=== PATIENT | female | born 1950 | race Caucasian/White ===

== ENCOUNTER → 2016-07-12 | Outpatient (CLI) | payer OTHER ==
[~2016-07-12] MED LIST: BABY81CH PO; CARD360C PO; CYCL-36 PO; DIGO0.25 PO; FURO1TAB93 PO; OMEP20TA PO; OXYC10 PO; POTA-267 PO; ROSU5 PO; VENTAER INH
[2016-07-12 15:48] LABS: BICARBONATE 35.2 MEQ/L (21.0-32.0); POTASSIUM 3.8 MEQ/L (3.5-5.1)
[2016-07-12 15:51] LABS: HDL CHOLESTEROL 67.9 MG/DL (40.0-60.0)
== END ==
LOC: PLAB 12:10
PROVIDERS: ATTEND Internal Medicine Interventional Cardiology
DX: R00.2 Palpitations (principal); I49.1 Atrial premature depolarization; E78.00 Pure hypercholesterolemia, unspecified; I11.9 Hypertensive heart disease without heart failure
CPT/HCPCS: 80048; 80061; 84450; 84460

== ENCOUNTER → 2016-11-11 | Outpatient (CLI) | payer OTHER ==
[2016-11-11 12:56] LABS: BACTERIA, URINE OCC /hpf; BLOOD, URINE MOD (NEG); GLUCOSE,URINE NEG (NEG); KETONE, URINE NEG (NEG); MUCUS URINE FEW /lpf (OCC); NITRITE,URINE NEG (NEG); SQUAMOUS EPITHELIAL CELL URINE 1 /hpf (0-5); URINE COLOR YELLOW (YELLW/STRAW)
[2016-11-11 13:02] LABS: AUTOMATED NEUTROPHIL # 2.7 TH/MM3 (1.8-7.7); BASOPHIL % 0.8 % (0.0-2.0); EOSINOPHIL # 0.1 TH/MM3 (0-0.4); EOSINOPHIL % 2.9 % (0.0-4.0); HEMATOCRIT 39.2 % (35.0-46.0); HEMO FLAGS DIFF FINAL; LYMPH % 32.6 % (9.0-44.0); LYMPHOCYTE # 1.5 TH/MM3 (1.0-4.8); MEAN CELL VOLUME 92.6 FL (80.0-100.0); MEAN CORPUSCULAR HEMOGLOBIN 30.1 PG (27.0-34.0); MEAN CORPUSCULAR HGB CONC 32.5 % (32.0-36.0); MONO % 6.8 % (0.0-8.0); NEUT % 56.9 % (16.0-70.0); PLATELET COUNT 212 TH/MM3 (150-450); RED BLOOD COUNT 4.23 MIL/MM3 (4.00-5.30); RED CELL DISTRIBUTION WIDTH 13.6 % (11.6-17.2); WHITE BLOOD COUNT 4.7 TH/MM3 (4.0-11.0)
[2016-11-11 13:16] LABS: ANION GAP 7 MEQ/L (5-15); BICARBONATE 32.2 MEQ/L (21.0-32.0); BLOOD UREA NITROGEN 16 MG/DL (7-18); CHLORIDE 100 MEQ/L (98-107); GLOMERULAR FILTRATION RATE 72 ML/MIN (>89); GLUCOSE,FASTING 99 MG/DL (74-99); POTASSIUM 3.7 MEQ/L (3.5-5.1); SODIUM (NA) 139 MEQ/L (136-145)
[2016-11-11 13:17] LABS: AST (GOT) 41 U/L (15-37)
[2016-11-11 13:43] LABS: WESTERGREN SEDIMENTATION RATE 12 mm/hr (0-30)
[2016-11-11 13:46] LABS: ALKALINE PHOSPHATASE 71 U/L (45-117); ALT (GPT) 57 U/L (10-53); HDL CHOLESTEROL 63.4 MG/DL (40.0-60.0); LDL CHOLESTEROL 80 MG/DL (0-99); TOTAL BILIRUBIN ADULT 0.6 MG/DL (0.2-1.0)
== END ==
LOC: PLAB 10:33
PROVIDERS: ATTEND Family Medicine
DX: I10 Essential (primary) hypertension (principal); R53.83 Other fatigue; E78.5 Hyperlipidemia, unspecified; E55.9 Vitamin D deficiency, unspecified; M60.9 Myositis, unspecified; R31.21 Asymptomatic microscopic hematuria
CPT/HCPCS: 80053; 80061; 81001; 82306; 82607; 85025; 85652; 86038; 86235

== ENCOUNTER → 2016-12-15 | Outpatient (CLI) | payer OTHER ==
[~2016-12-15] MED LIST changes: +DIGO0.12 PO; +DILT-64 PO; +ESTR42.5V VAGINAL; +FLUTI110I INH; +LISI-519 PO; +MONT10TA2 PO; +NITR100C4 PO; +PROZ20CA11 PO; +RANI150T PO; +REST30CA PO; +[UNRECOGNIZED DRUG - CODE] PO
[2016-12-15 16:46] LABS: FREE T4 1.14 NG/DL (0.76-1.46)
[2016-12-15 18:56] LABS: HEMOGLOBIN A1a 1.1 %; HEMOGLOBIN Ao 84.3 %; HEMOGLOBIN LA1C 2.1 %; HEMOGLOBIN P3 3.8 %
== END ==
LOC: PLAB 11:57
PROVIDERS: ATTEND Family Medicine
DX: E11.9 Type 2 diabetes mellitus without complications (principal); I47.1 Supraventricular tachycardia; E55.9 Vitamin D deficiency, unspecified; R79.89 Other specified abnormal findings of blood chemistry; G25.3 Myoclonus
CPT/HCPCS: 80162; 82164; 82607; 82746; 83036; 84439; 84443

== ENCOUNTER → 2017-02-04 | Outpatient (CLI) | payer OTHER ==
[~2017-02-04] MED LIST changes: -BABY81CH PO; -CARD360C PO; -CYCL-36 PO; -DIGO0.25 PO; -FURO1TAB93 PO; -OMEP20TA PO; -OXYC10 PO; -POTA-267 PO
[2017-02-04 13:37] LABS: BLOOD, URINE SMALL (NEG); COMMENT (UR) CULT NOT INDICATED; CULTURE IF INDICATED CULT NOT INDICATED; GLUCOSE,URINE NEG (NEG); KETONE, URINE NEG (NEG); MUCUS URINE FEW /lpf (OCC); NITRITE,URINE NEG (NEG); PH, URINE 7.5 (5.0-8.5); SQUAMOUS EPITHELIAL CELL URINE <1 /hpf (0-5); URINE COLOR YELLOW (YELLW/STRAW)
== END ==
LOC: CLAB 13:07
PROVIDERS: ATTEND Obstetrics & Gynecology Gynecology
DX: R31.29 Other microscopic hematuria (principal)
CPT/HCPCS: 81001

== ENCOUNTER → 2017-02-16 | Outpatient (CLI) | payer OTHER ==
[2017-02-16 16:40] LABS: BACTERIA, URINE FEW /hpf; BLOOD, URINE MOD (NEG); COMMENT (UR) CULTURE INDICATED; CULTURE IF INDICATED CULTURE INDICATED; GLUCOSE,URINE NEG (NEG); KETONE, URINE NEG (NEG); NITRITE,URINE POS (NEG); PH, URINE 5.5 (5.0-8.5); SQUAMOUS EPITHELIAL CELL URINE 1 /hpf (0-5); URINE COLOR YELLOW (YELLW/STRAW)
== END ==
LOC: PLAB 12:25
PROVIDERS: ATTEND Obstetrics & Gynecology Gynecology
DX: N39.0 Urinary tract infection, site not specified (principal); B96.1 Klebsiella pneumoniae [K. pneumoniae] as the cause of diseases classified elsewhere
CPT/HCPCS: 81001; 87077; 87086; 87186

== ENCOUNTER → 2017-03-29 | Outpatient (CLI) | payer OTHER ==
[~2017-03-29] MED LIST changes: -DILT-64 PO; +DILT240C44 PO; +[UNRECOGNIZED DRUG - CODE] PO; -[UNRECOGNIZED DRUG - CODE] PO
--- NOTE | 2017-03-31 10:56 | HM ---
Date Performed: 03/29/2017 Time Performed: 13:20:00 HOOKUP DATE: 03/29/17 01:20:00 PM Tue ANALYSIS START TIME: 03/29/2017 1:25:00 PM ANALYSIS END TIME: 03/30/2017 1:28:59 PM PATIENT AGE: 66 PATIENT HEIGHT PATIENT WEIGHT DRUG LIST PATIENT DIAGNOSIS: palpitations TEST NARRATIVE: The patient's average heart rate was 81 BPM. No episodes of tachycardia wer e noted. No episodes of bradycardia were noted. No pauses exceeding 2.0 seconds were noted. 1087 ventricular ectopics, which represented 1% of the total beat count, were noted. The highest tan tricular ectopic frequency occurred from 04:00 PM to 05:00 PM Tue. During this time 373 VE(s) occurr ed. Ventricular ectopics were observed as 1061 isolated beat(s) and as 13 couplet(s). No runs were noted. No supraventricular ectopics were noted. No episodes of ST depression (defined as -1.0 mm or more) were noted in channel 1. No episodes of ST depression (defined as -1.0 mm or more) were noted in channel 2. No episodes of ST depression (defined as -1.0 mm or more) were noted in channel 3. TEST INTERPRETATION: Benign Holter Monitor Occassional PVC's No pauses No tachyarrthymias Signed by : Navi Boykin
== END ==
LOC: HCAV 12:56
PROVIDERS: ATTEND Internal Medicine Interventional Cardiology
DX: R00.2 Palpitations (principal)
CPT/HCPCS: 93225; 93226

== ENCOUNTER → 2017-04-20 | Outpatient (CLI) | payer OTHER ==
[~2017-04-20] MED LIST changes: +METH5TAB PO
[2017-04-20 16:09] LABS: BICARBONATE 32.1 MEQ/L (21.0-32.0); POTASSIUM 4.4 MEQ/L (3.5-5.1)
[2017-04-20 16:20] LABS: HDL CHOLESTEROL 76.5 MG/DL (40.0-60.0)
== END ==
LOC: PLAB 11:24
PROVIDERS: ATTEND Internal Medicine Interventional Cardiology
DX: E11.9 Type 2 diabetes mellitus without complications (principal); R60.0 Localized edema; E72.00 Disorders of amino-acid transport, unspecified; Z79.899 Other long term (current) drug therapy
CPT/HCPCS: 36415; 80048; 80061; 83721; 84443; 84450; 84460

== ENCOUNTER → 2017-07-11 | Outpatient (CLI) | payer OTHER ==
[~2017-07-11] MED LIST changes: -NITR100C4 PO
== END ==
LOC: PLAB 10:19
PROVIDERS: ATTEND Family Medicine
DX: R31.21 Asymptomatic microscopic hematuria (principal)
CPT/HCPCS: 88112

== ENCOUNTER → 2017-07-13 | Outpatient (CLI) | payer OTHER ==
[2017-07-13 11:15] LABS: ALBUMIN 3.6 GM/DL (3.4-5.0); AST (GOT) 49 U/L (15-37); BICARBONATE 31.8 MEQ/L (21.0-32.0); BLOOD UREA NITROGEN 14 MG/DL (7-18); CALCIUM 8.4 MG/DL (8.5-10.1); CHLORIDE 100 MEQ/L (98-107); CREATININE 0.78 MG/DL (0.50-1.00); GLOMERULAR FILTRATION RATE 74 ML/MIN (>89); GLUCOSE,FASTING 106 MG/DL (74-99); SODIUM (NA) 140 MEQ/L (136-145)
[2017-07-13 11:16] LABS: CHOLESTEROL 225 MG/DL (120-200)
[2017-07-13 11:19] LABS: ALKALINE PHOSPHATASE 89 U/L (45-117); ALT (GPT) 78 U/L (10-53); CHOLESTEROL/ HDL RATIO 3.36 RATIO; HDL CHOLESTEROL 66.9 MG/DL (40.0-60.0); LDL CHOLESTEROL 138 MG/DL (0-99); TOTAL BILIRUBIN ADULT 0.4 MG/DL (0.2-1.0); TOTAL PROTEIN 7.9 GM/DL (6.4-8.2); TRIGLYCERIDES 102 MG/DL (42-150)
[2017-07-13 15:59] LABS: HEMOGLOBIN A1C 6.2 % (4.3-6.0)
== END ==
LOC: PLAB 09:21
PROVIDERS: ATTEND Family Medicine
DX: K76.0 Fatty (change of) liver, not elsewhere classified (principal); E11.9 Type 2 diabetes mellitus without complications; R94.5 Abnormal results of liver function studies
CPT/HCPCS: 36415; 80053; 80061; 83036

== ENCOUNTER → 2017-08-12 | Outpatient (CLI) | payer OTHER ==
[2017-08-12 14:33] LABS: BICARBONATE 32.2 MEQ/L (21.0-32.0); CALCIUM 8.8 MG/DL (8.5-10.1); CREATININE 0.85 MG/DL (0.50-1.00)
[2017-08-12 14:37] LABS: CHOLESTEROL/ HDL RATIO 2.46 RATIO; HDL CHOLESTEROL 70.6 MG/DL (40.0-60.0)
== END ==
LOC: PLAB 08:49
PROVIDERS: ATTEND Internal Medicine Interventional Cardiology
DX: E11.9 Type 2 diabetes mellitus without complications (principal); R60.0 Localized edema; I47.1 Supraventricular tachycardia; R00.2 Palpitations
CPT/HCPCS: 36415; 80048; 80061; 84450; 84460

== ENCOUNTER → 2017-08-15 | Outpatient (CLI) | payer OTHER | LOC: PLAB 11:49 | PROVIDERS: ATTEND Family Medicine | DX: Z11.59 Encounter for screening for other viral diseases (principal) | CPT/HCPCS: 36415; 86803 ==

== ENCOUNTER → 2017-08-30 | Outpatient (CLI) | payer OTHER ==
[2017-08-30 09:13] LABS: PROTHROMBIN TIME - PATIENT 10.3 SEC (9.8-11.6)
[2017-08-30 10:22] LABS: AUTOMATED NEUTROPHIL # 3.9 TH/MM3 (1.8-7.7); BASOPHIL % 0.5 % (0.0-2.0); EOSINOPHIL # 0.1 TH/MM3 (0-0.4); EOSINOPHIL % 1.2 % (0.0-4.0); HEMATOCRIT 39.5 % (35.0-46.0); HEMOGLOBIN 13.5 GM/DL (11.6-15.3); LYMPH % 27.9 % (9.0-44.0); LYMPHOCYTE # 1.7 TH/MM3 (1.0-4.8); MEAN CELL VOLUME 91.4 FL (80.0-100.0); MEAN CORPUSCULAR HEMOGLOBIN 31.2 PG (27.0-34.0); MEAN CORPUSCULAR HGB CONC 34.1 % (32.0-36.0); MEAN PLATELET VOLUME 8.4 FL (7.0-11.0); MONO % 7.1 % (0.0-8.0); MONOCYTE # 0.4 TH/MM3 (0-0.9); NEUT % 63.3 % (16.0-70.0); PLATELET COUNT 244 TH/MM3 (150-450); RED BLOOD COUNT 4.32 MIL/MM3 (4.00-5.30); RED CELL DISTRIBUTION WIDTH 14.5 % (11.6-17.2); WHITE BLOOD COUNT 6.1 TH/MM3 (4.0-11.0)
[2017-08-30 10:24] LABS: ALBUMIN 3.9 GM/DL (3.4-5.0); AST (GOT) 31 U/L (15-37); BICARBONATE 29.6 MEQ/L (21.0-32.0); BLOOD UREA NITROGEN 15 MG/DL (7-18); CALCIUM 8.9 MG/DL (8.5-10.1); CHLORIDE 102 MEQ/L (98-107); CREATININE 0.77 MG/DL (0.50-1.00); GLOMERULAR FILTRATION RATE 75 ML/MIN (>89); GLUCOSE,RANDOM 84 MG/DL (74-106); SODIUM (NA) 140 MEQ/L (136-145)
[2017-08-30 10:27] LABS: % SATURATION IRON PROFILE 23.1 % (20-50); ALKALINE PHOSPHATASE 63 U/L (45-117); ALT (GPT) 68 U/L (10-53); FERRITIN 81 NG/ML (8-252); IRON (FE) 84 MCG/DL (50-170); TOTAL BILIRUBIN ADULT 0.5 MG/DL (0.2-1.0); TOTAL IRON BINDING CAPACITY 364 MCG/DL (250-450); TOTAL PROTEIN 7.8 GM/DL (6.4-8.2)
[2017-08-31 13:46] LABS: SMOOTH MUSCLE TOTAL AUTOABS Negative (Negative)
[2017-08-31 22:15] LABS: ALPHA-1-ANTITRYPSIN 140 mg/dL (100 - 190)
[2017-09-01 19:53] LABS: ENDOMYSIAL AB SCREEN ND (NEGATIVE); ENDOMYSIAL AB TITER ND (<1:5)
[2017-09-01 23:52] LABS: MITOCHONDRIAL ABS LESS THAN 20.0 U (<=20.0)
[2017-09-02 19:52] LABS: CERULOPLASMIN 28 mg/dL (18-53)
== END ==
LOC: PLAB 07:16
PROVIDERS: ATTEND Family Medicine
DX: R74.0 Nonspecific elevation of levels of transaminase and lactic acid dehydrogenase [LDH] (principal)
CPT/HCPCS: 36415; 80053; 80074; 82103; 82105; 82390; 82525; 82728; 82784; 83516; 83520; 83540; 83550; 85025; 85610; 85730; 86038; 86255

== ENCOUNTER 2017-09-19 09:56 | Emergency (ER) | payer MEDICARE ==
[~2017-09-19] VITALS: Ht 162.6 cm; Wt 61.5 kg
[2017-09-19 10:02] VITALS: BP 147/65; PULSE 91; RESP 16; TEMP 98.8; O2SAT 97
[2017-09-19] MEDS ORDERED: ASPI-516 CHEW (10:14)
[2017-09-19] MEDS ORDERED: PRED10 PO (10:14)
--- NOTE | 2017-09-19 10:24 | PD ---
HPI Chief Complaint: Injury Time Seen by Provider: 10:08 Travel History International Travel<30 days: No Contact w/Intl Traveler<30days: No Traveled to known affect area: No History of Present Illness HPI 66-year-old female presents emergency department for evaluation of lower left leg pain after falling through her dock slats Tuesday. Patient states that she was trying to repair her dock, when her left leg slipped through, skinning up the anterior aspect of her right leg. Patient states that she decided to come to the emergency department today for evaluation of bruising that she developed behind her knee over the last day. Says that the bruising was initially on the anteromedial aspect of the leg from just above the knee to the lower two thirds of the saul. Patient states that her pain is minimal, she has full range of motion of her leg, no numbness but is concerned about a DVT because of the coloration. Patient states she is able to walk as usual with flexion and extension of her ankle and toes. She has no other complaints today. PFSH Past Medical History Hx Anticoagulant Therapy: Yes (asa 81mg) Arthritis: Yes Asthma: Yes Heart Rhythm Problems: Yes (SVT) Cancer: Yes (SKIN CANCER) Cardiac Catheterization: Yes Cardiovascular Problems: Yes (htn on med) High Cholesterol: Yes Chest Pain: Yes Coronary Artery Disease: Yes (MITRAL VALVE PROLAPSE) Diabetes: No Diminished Hearing: No Endocrine: No Gastrointestinal Disorders: Yes (GERD) Glaucoma: No Genitourinary: No Hepatitis: No Hiatal Hernia: No Hypertension: Yes Immune Disorder: Yes (FIBROMYALGIA) Musculoskeletal: Yes (ANKOLOSING SPONDOLYSIS, CHRONIC NECK AND BACK PAIN) Neurologic: Yes (SPINAL CORD STIMULATOR, NEUROPATHY IN FEET) Psychiatric: No Reproductive: No Respiratory: Yes (asthma) Thyroid Disease: No ?: Not Menopausal: Yes Tubal Ligation: Yes Past Surgical History Abdominal Surgery: Yes (CHOLECYSTECTOMY, EXPLORATORY LAP) AICD: No Body Medical Devices: LUMBAR CAGE, SPINAL CORD STIMULATOR Cardiac Surgery: No Cholecystectomy: Yes Ear Surgery: No Endocrine Surgery: No Eye Surgery: No Genitourinary Surgery: No Gynecologic Surgery: Yes (TUBAL LIG.) Joint Replacement: No Neurologic Surgery: Yes (SPINAL CORD STIMULATOR) Oral Surgery: No Pacemaker: No Thoracic Surgery: No Other Surgery: Yes (EXPLORATORY LAP) Social History Alcohol Use: Yes (rare occ) Tobacco Use: No Substance Use: No Allergies-Medications (Allergen,Severity, Reaction): Coded Allergies: codeine (Unverified Allergy, Severe, ITCHING, 09/19/17) diphenhydramine (Unverified Allergy, Severe, SWELLING OF NECK AND HEAD, ) LIQUID BENADRYL ONLY latex (Unverified Allergy, Severe, BLISTERS ON CONTACT, 09/19/17) peanut (Unverified Allergy, Severe, Swelling, 09/19/17) TONGUE/ FACIAL SWELLING penicillin G (Unverified Allergy, Severe, TACHYCARDIA, RASH, 09/19/17) shellfish derived (Unverified Allergy, Severe, SWELLING OF NECK AND THROAT , ANAPHYLAXIS, 09/19/17) ANAPHYLAXIS tramadol (Verified Allergy, Severe, Hives, 09/19/17) acebutolol (Unverified Adverse Reaction, Unknown, 09/19/17) WORSENING ASTHMA atenolol (Unverified Adverse Reaction, Unknown, 09/19/17) WORSENING ASTHMA betaxolol (Unverified Adverse Reaction, Unknown, 09/19/17) WORSENING ASTHMA carvedilol (Unverified Adverse Reaction, Unknown, 09/19/17) WORSENING ASTHMA duloxetine (Unverified Adverse Reaction, Unknown, 09/19/17) TACHYCARDIA AND SUICIDAL THOUGHTS labetalol (Unverified Adverse Reaction, Unknown, 09/19/17) WORSENING ASTHMA metoprolol (Unverified Adverse Reaction, Unknown, 09/19/17) WORSENING ASTHMA nebivolol (Unverified Adverse Reaction, Unknown, 09/19/17) WORSENING ASTHMA pindolol (Unverified Adverse Reaction, Unknown, 09/19/17) WORSENING ASTHMA propranolol (Unverified Adverse Reaction, Unknown, 09/19/17) WORSENING ASTHMA sotalol (Unverified Adverse Reaction, Unknown, 09/19/17) WORSENING ASTHMA timolol (Unverified Adverse Reaction, Unknown, 09/19/17) WORSENING ASTHMA Uncoded Allergies: MYCIN (Adverse Reaction, Unknown, 09/19/17) ELONGATED QT WAVES. NSAIDS (Adverse Reaction, Unknown, 09/19/17) FLUID RETENTION. Reported Meds & Prescriptions Reported Meds & Active Scripts Active Reported Prednisone 10 Mg Tab 10 Mg PO DAILY Aspirin 81 Mg Chew 81 Mg CHEW DAILY Methadone (Methadone HCl) 5 Mg Tab 5 Mg PO BID Ventolin Hfa 18 GM Inh (Albuterol Sulfate) 90 Mcg/Act Aer 2 Puff INH Q4-6H PRN Amrix 24 HR (Cyclobenzaprine HCl) 30 Mg Cap 30 Mg PO DAILY Singulair (Montelukast Sodium) 10 Mg Tab 10 Mg PO HS Ranitidine (Ranitidine HCl) 150 Mg Tab 150 Mg PO BID Prozac (Fluoxetine HCl) 20 Mg Cap 20 Mg PO DAILY Lisinopril 5 Mg Tab 10 Mg PO DAILY Digoxin 0.125 Mg Tab 0.125 Mg PO DAILY Diltiazem CD 24 HR 240 Mg Caper 240 Mg PO BID Review of Systems Except as stated in HPI: all other systems reviewed are Neg Physical Exam Narrative GENERAL: Well-nourished, well-developed patient. SKIN: Focused skin assessment warm/dry. HEAD: Normocephalic. EYES: No scleral icterus. No injection or drainage. NECK: Supple, trachea midline. CARDIOVASCULAR: Regular rate and rhythm without murmurs, gallops, or rubs. RESPIRATORY: Breath sounds equal bilaterally. No accessory muscle use. MUSCULOSKELETAL: No cyanosis, or edema. Right lower extremity-ecchymosis in the posterior aspect of knee without edema, no significant tenderness palpation of the thigh, knee, anterior saul, Lr sign negative, Homans sign negative, neurovascularly intact lower extremity. Mild area of erythema over the lightly abraded just area of the anterior medial aspect of knee. Full range of motion of knee joint and leg. BACK: Nontender without obvious deformity. No CVA tenderness. Data Data Last Documented VS Vital Signs Date Time Temp Pulse Resp B/P (MAP) Pulse Ox O2 Delivery O2 Flow Rate FiO2 09/19/17 10:02 98.8 91 16 147/65 (92) 97 Orders Orders Ed Discharge Order (09/19/17 10:25) [facility] Medical Decision Making Medical Screen Exam Complete: Yes Emergency Medical Condition: Yes Differential Diagnosis Left lower extremity saul contusion, ecchymosis, fracture, joint effusion, abrasion Narrative Course 66-year-old female presents emergency department for evaluation of left lower extremity swelling, ecchymosis that occurred as patient was walking her dog. Patient says she slipped through the slots of her dog and scraped up her saul and knee. She came to the emergency department for evaluation for concern of developing a DVT as she had ecchymosis behind the knee. Physical exam findings are reassuring. There is some ecchymosis behind the knee and the anterior aspect of the saul and knee however, she is only mildly tender over the area of ecchymosis and nontender behind the knee. She has full range of motion of her lower extremity without restrictions. Neurovascular intact left lower extremity. Patient be discharged advised to consider using compression, elevation, heat or ice for symptom relief. She is advised to follow-up with her primary care physician. Return for worsening persistent symptoms. Diagnosis Primary Impression: Contusion Qualified Codes: S80.01XA - Contusion of right knee, initial encounter Referrals: Primary Care Physician Additional Instructions: If you develop increased swelling, increase pain return to emergency department. I recommend ice or heat packs, whichever is most therapeutic for you. Consider compression Cornelius wrap knee brace to reduce swelling. Recommend continuing your daily activities and avoid excessive rest until your bruising has healed. Disposition: 01 DISCHARGE HOME Condition: Stable Hayley Flores September 19, 2017 10:24
== END 2017-09-19 10:56 | disposition home or self-care (01) ==
LOC: PHEFT 09:56
DX: S80.01XA Contusion of right knee, initial encounter (principal); M79.7 Fibromyalgia; I10 Essential (primary) hypertension; J45.909 Unspecified asthma, uncomplicated; I25.10 Atherosclerotic heart disease of native coronary artery without angina pectoris; K21.9 Gastro-esophageal reflux disease without esophagitis; M47.9 Spondylosis, unspecified; M19.90 Unspecified osteoarthritis, unspecified site; W17.89XA Other fall from one level to another, initial encounter
CPT/HCPCS: 99282

== ENCOUNTER 2017-10-01 12:06 | Emergency (ER) | payer MEDICARE, OTHER ==
[~2017-10-01] VITALS: Ht 162.6 cm; Wt 59.1 kg
[~2017-10-01 12:06] MED LIST changes: +ASPI-516 CHEW; -ESTR42.5V VAGINAL; -FLUTI110I INH; +PRED10 PO; -REST30CA PO; -ROSU5 PO
[2017-10-01 12:14] VITALS: BP 164/70; PULSE 93; RESP 18; TEMP 98.4; O2SAT 97
--- NOTE | 2017-10-01 13:55 | RADRPT ---
EXAM DATE: 10/01/2017 1:51 PM EDT AGE/SEX: 66 years / Female INDICATIONS: Pain in left lower leg and knee. Patient was walking on a dock and fell through a board . CLINICAL DATA: This is the patient's initial encounter. Patient reports that signs and symptoms have been present for 2 weeks and indicates a pain score of 6/10. MEDICAL/SURGICAL HISTORY: None. None. COMPARISON: None. FINDINGS: Bony structures are intact and in normal alignment. Joints are intact without dislocation or signifi cant arthropathy. Osseous density is normal. Soft tissues are unremarkable. No radiopaque foreign bodies seen. CONCLUSION: Negative examination Electronically signed by: Anibal Ramsey MD 10/01/2017 1:54 PM EDT
--- NOTE | 2017-10-01 14:10 | PD ---
HPI Chief Complaint: Pain: Acute or Chronic Time Seen by Provider: 13:10 Travel History International Travel<30 days: No Contact w/Intl Traveler<30days: No Traveled to known affect area: No History of Present Illness HPI This 66-year-old woman presents to the emergency department complaint of left pain and swelling in her leg. She had fallen through a docking was seen in the emerged prior earlier. She had a lot of bruising and scrapes to her leg. Over the past couple weeks she has had more swelling and now less swelling. She has an referral from her primary doctor to go see an orthopedic doctor for "compartment syndrome". She looks well. She can walk. She is no pain now. Pain is worse at night. Swelling is overall improved. History Past Medical History Medical History: Denies Significant Hx Menopausal: Yes Social History Alcohol Use: Yes (rare occ) Tobacco Use: No Allergies-Medications (Allergen,Severity, Reaction): Coded Allergies: codeine (Unverified Allergy, Severe, ITCHING, 10/01/17) diphenhydramine (Unverified Allergy, Severe, SWELLING OF NECK AND HEAD, ) LIQUID BENADRYL ONLY latex (Unverified Allergy, Severe, BLISTERS ON CONTACT, 10/01/17) peanut (Unverified Allergy, Severe, Swelling, 10/01/17) TONGUE/ FACIAL SWELLING penicillin G (Unverified Allergy, Severe, TACHYCARDIA, RASH, 10/01/17) shellfish derived (Unverified Allergy, Severe, SWELLING OF NECK AND THROAT , ANAPHYLAXIS, 10/01/17) ANAPHYLAXIS tramadol (Verified Allergy, Severe, Hives, 10/01/17) acebutolol (Unverified Adverse Reaction, Unknown, 10/01/17) WORSENING ASTHMA atenolol (Unverified Adverse Reaction, Unknown, 10/01/17) WORSENING ASTHMA betaxolol (Unverified Adverse Reaction, Unknown, 10/01/17) WORSENING ASTHMA carvedilol (Unverified Adverse Reaction, Unknown, 10/01/17) WORSENING ASTHMA duloxetine (Unverified Adverse Reaction, Unknown, 10/01/17) TACHYCARDIA AND SUICIDAL THOUGHTS labetalol (Unverified Adverse Reaction, Unknown, 10/01/17) WORSENING ASTHMA metoprolol (Unverified Adverse Reaction, Unknown, 10/01/17) WORSENING ASTHMA nebivolol (Unverified Adverse Reaction, Unknown, 10/01/17) WORSENING ASTHMA pindolol (Unverified Adverse Reaction, Unknown, 10/01/17) WORSENING ASTHMA propranolol (Unverified Adverse Reaction, Unknown, 10/01/17) WORSENING ASTHMA sotalol (Unverified Adverse Reaction, Unknown, 10/01/17) WORSENING ASTHMA timolol (Unverified Adverse Reaction, Unknown, 10/01/17) WORSENING ASTHMA Uncoded Allergies: MYCIN (Adverse Reaction, Unknown, 09/19/17) ELONGATED QT WAVES. NSAIDS (Adverse Reaction, Unknown, 09/19/17) FLUID RETENTION. Reported Meds & Prescriptions Reported Meds & Active Scripts Active Reported Prednisone 10 Mg Tab 10 Mg PO DAILY Aspirin 81 Mg Chew 81 Mg CHEW DAILY Methadone (Methadone HCl) 5 Mg Tab 5 Mg PO BID Ventolin Hfa 18 GM Inh (Albuterol Sulfate) 90 Mcg/Act Aer 2 Puff INH Q4-6H PRN Amrix 24 HR (Cyclobenzaprine HCl) 30 Mg Cap 30 Mg PO DAILY Singulair (Montelukast Sodium) 10 Mg Tab 10 Mg PO HS Ranitidine (Ranitidine HCl) 150 Mg Tab 150 Mg PO BID Prozac (Fluoxetine HCl) 20 Mg Cap 20 Mg PO DAILY Lisinopril 5 Mg Tab 10 Mg PO DAILY Digoxin 0.125 Mg Tab 0.125 Mg PO DAILY Diltiazem CD 24 HR 240 Mg Caper 240 Mg PO BID Review of Systems Except as stated in HPI: all other systems reviewed are Neg Physical Exam Narrative GENERAL: Well-appearing 66-year-old woman, no acute distress per SKIN: Warm and dry. CARDIOVASCULAR: Warm and well perfused. RESPIRATORY: Normal rate and effort. MUSCULOSKELETAL: Left leg is some ecchymosis and bruising. There is some fullness on the medial side of the right knee and an obvious bursal effusion that may or may not be contiguous with the joint capsule proper. She has full range of motion of the knee. There is no real areas of tenderness at all. There is no instability. There is no calf swelling or fullness or tenderness in the compartments. There is minimal asymmetry compared to the right leg. NEUROLOGICAL: Awake and alert. No gross deficits. Data Data Last Documented VS Vital Signs Date Time Temp Pulse Resp B/P (MAP) Pulse Ox O2 Delivery O2 Flow Rate FiO2 10/01/17 12:14 98.4 93 18 164/70 (310) 97 Orders Orders Knee, Complete (4vws) (10/01/17 ) MDM Medical Decision Making Medical Screen Exam Complete: Yes Emergency Medical Condition: Yes Differential Diagnosis Ecchymosis, bruising, effusion, other Narrative Course Medical decision making para 66-year-old woman presents emerged part of left knee pain. X-rays negative. She does have an effusion in the bursa. Is no infection. Is not tender. Recommend she follow with orthopedics as scheduled. She was worried because her appointment was not until October. Will wrap her knee with an Cornelius wrap to apply a little bit of compression. Outpatient follow- up. Diagnosis Primary Impression: Effusion of bursa of knee Additional Instructions: Follow-up with the orthopedic doctor as scheduled. Return to the emergency part for any worsening pain redness swelling weakness or any other new or worsening symptoms. Disposition: 01 DISCHARGE HOME Condition: Stable Lawrence Helm MD October 01, 2017 14:10
== END 2017-10-01 14:36 | disposition home or self-care (01) ==
LOC: NEPD 12:06
DX: M25.462 Effusion, left knee (principal)
CPT/HCPCS: 73564; 99283